=== PATIENT | female | born 1970 | race American Indian/Alaskan Native ===

== ENCOUNTER 2016-12-06 14:24 | Outpatient (CLI) | payer BC, OTHER | END 2016-12-06 14:25 | disposition home or self-care (01) | LOC: LABHHL 14:24 | PROVIDERS: ATTEND Obstetrics & Gynecology | DX: D25.0 Submucous leiomyoma of uterus (principal) | CPT/HCPCS: 88305 ==

== ENCOUNTER 2020-06-22 11:33 | Emergency (ER) | payer BC, MEDICAID ==
[2020-06-22 12:30] LABS: Basophils # (Auto) 0.1 K/mm3 (0.0-0.1); Basophils % (Auto) 0.9 % (0.0-1.8); Eosinophils % (Auto) 0.2 % (0.0-4.3); Hematocrit 37.1 % (30.3-42.9); Hemoglobin 11.8 gm/dl (10.1-14.3); Lymphocytes # (Auto) 1.9 K/mm3 (1.2-5.4); Lymphocytes % (Auto) 13.1 % (13.4-35.0); Mean Corpuscular HGB Conc 32 % (30-34); Mean Corpuscular Volume 79 fl (79-97); Monocytes % (Auto) 7.1 % (0.0-7.3); Platelet Count 230 K/mm3 (140-440); Red Blood Count 4.71 M/mm3 (3.65-5.03); Red Cell Distribution Width 16.6 % (13.2-15.2)
[2020-06-22 12:58] LABS: BUN/Creatinine Ratio 26; Blood Urea Nitrogen 23 mg/dL (7-17); Calcium 9.6 mg/dL (8.4-10.2); Hemolysis Index 6
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
[2020-06-22 16:20] LABS: Amphetamine Screen,Urine Negative; Benzodiazepines Screen,Urine Negative; Cocaine Screen,Urine Negative; Methadone Screen,Urine Negative; Opiate Screen,Urine Negative
[2020-06-22 16:33] LABS: Cannabinoid Screen,Urine Positive
[2020-06-22 16:41] LABS: Bilirubin,Urine NEG (Negative); Blood,Urine NEG (Negative); Color,Urine Yellow (Yellow); Mucus,Urine FEW /HPF; Protein,Urine <15 mg/dL mg/dL (Negative); Urobilinogen,Urine < 2.0 mg/dL (<2.0)
[2020-06-22] MEDS ORDERED: ZIPRASIDONE MESYLATE 20 MG VIAL IM ONE ×2 (16:59→17:07)
[2020-06-22 17:22] VITALS: BP 148/90
== END 2020-06-22 19:13 ==
LOC: ED 11:33
DX: F23 Brief psychotic disorder (principal); J45.909 Unspecified asthma, uncomplicated; F17.200 Nicotine dependence, unspecified, uncomplicated; Z79.899 Other long term (current) drug therapy; Z88.8 Allergy status to other drugs, medicaments and biological substances
CPT/HCPCS: 36415; 80048; 80307; 81001; 83690; 84703; 85025; 96372; 99285; J3486; 80320; G0480

== ENCOUNTER 2021-07-13 19:01 | Emergency (ER) | payer MEDICARE ==
[2021-07-13] MEDS ORDERED: LORazepam 2 MG/ML VIAL IM PRN (21:17)
[2021-07-13] MEDS ORDERED: ZIPRASIDONE MESYLATE 20 MG VIAL IM ONE (21:17)
[2021-07-13] MEDS ORDERED: HALOPERIDOL LACTATE 5 MG/1 ML INJ IM PRN (21:17)
[2021-07-13] MEDS ORDERED: HALOPERIDOL LACTATE 5 MG/1 ML INJ IM ONE (21:18)
[2021-07-13] MEDS ORDERED: diphenhydrAMINE 50 MG/ML VIAL IM ONE (21:18)
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
[2021-07-13] MEDS ORDERED: LORazepam 2 MG/ML VIAL IM ONE (21:19)
[2021-07-13 21:48] LABS: Mean Corpuscular HGB Conc 30 % (30-34); Mean Corpuscular Volume 76 fl (79-97); Platelet Count 265 K/mm3 (140-440); Red Blood Count 4.88 M/mm3 (3.65-5.03)
[2021-07-13 22:02] LABS: Hematocrit 37.1 % (30.3-42.9); Hemoglobin 11.1 gm/dl (10.1-14.3); Red Cell Distribution Width 20.4 % (13.2-15.2)
[2021-07-13 22:06] LABS: Blood Urea Nitrogen 10 mg/dL (7-17); Calcium 9.1 mg/dL (8.4-10.2); Hemolysis Index 2
[2021-07-13 22:09] LABS: BUN/Creatinine Ratio 17
--- NOTE | 2021-07-13 23:16 | XRay Report ---
CHEST 1 VIEW 07/13/2021 10:45 PM INDICATION / CLINICAL INFORMATION: Medical Clearance Psych. COMPARISON: One view of the chest from 06/21/2013. FINDINGS: This study is limited by technique and the patient's body habitus. SUPPORT DEVICES: None. HEART / MEDIASTINUM: No significant abnormality. LUNGS / PLEURA: No significant pulmonary abnormality. No significant pleural effusion. No pneumothora x. ADDITIONAL FINDINGS: No significant additional findings. IMPRESSION: 1. No acute abnormality of the chest. Signer Name: Ashkan Acevedo MD Signed: 07/13/2021 11:11 PM Workstation Name: [id number]
--- NOTE | 2021-07-13 23:57 | Cat Scan Report ---
CT HEAD WITHOUT CONTRAST INDICATION / CLINICAL INFORMATION: acute psychosis. TECHNIQUE: All CT scans at this location are performed using CT dose reduction for ALARA by means of automated exposure control. COMPARISON: None available. FINDINGS: BRAIN PARENCHYMA: No acute intracranial hemorrhage. No evidence of recent infarct. No mass effect or midline shift. VENTRICULAR SYSTEM/EXTRA-AXIAL SPACES: Ventricles are normal for age. No extra-axial fluid collection . ORBITS: Normal as visualized. SKELETAL SYSTEM/SOFT TISSUES: Normal bones and soft tissues. PARANASAL SINUSES/MASTOID AIR CELLS: No significant abnormality. ADDITIONAL FINDINGS: None. IMPRESSION: 1. No acute intracranial abnormality. Signer Name: Ashkan Acevedo MD Signed: 07/13/2021 11:52 PM Workstation Name: [id number]
--- NOTE | 2021-07-14 00:06 | Cat Scan Report ---
CT CERVICAL SPINE WITHOUT CONTRAST INDICATION: Altered mental status, acute psychosis, possible neck injury. COMPARISON: None available. TECHNIQUE: Axial, coronal and sagittal CT imaging of the cervical spine without contrast was performnegro d. All CT scans at this location are performed using CT dose reduction for ALARA by means of automat ed exposure control. FINDINGS: Motion artifact limits portions of this exam. VERTEBRAE:No acute fracture. Normal alignment. DISC SPACES: No significant abnormality. FACET JOINTS:No significant abnormality. CENTRAL CANAL: No central canal stenosis or neural foraminal narrowing. SOFT TISSUES:No significant abnormality. LUNG APICES: No significant abnormality. ADDITIONAL FINDINGS: None IMPRESSION: Limited exam due to motion artifact. No acute findings. Signer Name: Ashkan Acevedo MD Signed: 07/14/2021 12:02 AM Workstation Name: [id number]
[2021-07-14] MEDS ORDERED: ALBUTEROL 8.5 GM MDI INHALATION IH PRN (03:49)
[2021-07-14 09:30] VITALS: BP 174/90
[2021-07-14 09:40] LABS: Amphetamine Screen,Urine Negative; Benzodiazepines Screen,Urine Negative; Cocaine Screen,Urine Negative; Methadone Screen,Urine Negative; Opiate Screen,Urine Negative
[2021-07-14 09:46] LABS: Bacteria,Urine 1+ /HPF (Negative); Bilirubin,Urine NEG (Negative); Blood,Urine NEG (Negative); Color,Urine Yellow (Yellow); Hyaline Casts,Urine 2 /LPF; Mucus,Urine FEW /HPF; Protein,Urine <15 mg/dL mg/dL (Negative)
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
[2021-07-14 09:59] LABS: Cannabinoid Screen,Urine Positive
[2021-07-14] MEDS ORDERED: FAMOTIDINE 20 MG TAB PO SCH (10:00)
--- NOTE | 2021-07-14 11:45 | Emergency Department Report ---
Blank Doc - Documentation Documentation: Medical chart reviewed Patient medically cleared by previous provider after ED work-up Patient requiring IM medication for sedation due to conduct upon ED arrival Patient here overnight and evaluated by mental health and deemed stable for discharge with the following assessment below Mental health assessment: (1) Bipolar Treatment Plan d/c 1013 Resume home meds previously prescribed by outpatient psych Sitter: per primary Medical: per primary Disposition: Do not recommend acute psychiatric inpatient treatment Will sign off. Thanks Case staffed with Dr. Spivey Nurse reports that since 8 this morning patient has been calm and cooperative Patient will be discharged as per mental health recommendation
--- NOTE | 2021-07-14 12:53 | Electrocardiograph Report ---
[facility] Test Date: 2021-07-13 Test Time: 22:42:13 Pat Name: NICK BALDWIN Department: Room: Gender: F Senior Business Manager: LIZZY : 1970 Requested By: BULL WATSON Order Number: [id number] Reading MD: Earl Escobar Measurements Intervals [place] Rate: 102 P: 73 MN: 153 QRS: 48 QRSD: 94 T: 1 QT: 427 QTc: 557 Interpretive Statements Sinus tachycardia Consider anteroseptal infarct Prolonged QT interval No previous ECG available for comparison Electronically Signed On 07-14-2021 12:52:59 EST by Earl Escobar
== END 2021-07-14 12:33 | disposition home or self-care (01) ==
LOC: ED 19:01
DX: F23 Brief psychotic disorder (principal); Z13.30 Encounter for screening examination for mental health and behavioral disorders, unspecified; Z20.822 Contact with and (suspected) exposure to COVID-19; Z91.041 Radiographic dye allergy status; Z87.892 Personal history of anaphylaxis
CPT/HCPCS: 36415; 70450; 71045; 72125; 80048; 80164; 80178; 80185; 80307; 81001; 82550; 83735; 84443; 85027; 93005; 96372; 99285; J3486; U0003; 80320; G0480

== ENCOUNTER 2021-07-25 11:38 | Emergency (ER) | payer MEDICARE ==
[2021-07-25 15:21] LABS: Basophils # (Auto) 0.1 K/mm3 (0.0-0.1); Basophils % (Auto) 0.8 % (0.0-1.8); Eosinophils # (Auto) 0.2 K/mm3 (0.0-0.4); Eosinophils % (Auto) 1.9 % (0.0-4.3); Lymphocytes # (Auto) 1.4 K/mm3 (1.2-5.4); Lymphocytes % (Auto) 11.8 % (13.4-35.0); Mean Corpuscular HGB Conc 30 % (30-34); Mean Corpuscular Volume 79 fl (79-97); Monocytes # (Auto) 0.7 K/mm3 (0.0-0.8); Monocytes % (Auto) 5.4 % (0.0-7.3)
[2021-07-25 15:32] LABS: BUN/Creatinine Ratio 16; Blood Urea Nitrogen 8 mg/dL (7-17); Calcium 9.2 mg/dL (8.4-10.2); Hemolysis Index 6
[2021-07-25 15:33] LABS: Hematocrit 36.2 % (30.3-42.9); Hemoglobin 10.8 gm/dl (10.1-14.3); Platelet Count 142 K/mm3 (140-440); Red Cell Distribution Width 21.6 % (13.2-15.2)
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
[2021-07-25] MEDS ORDERED: ZIPRASIDONE MESYLATE 20 MG VIAL IM ONE (18:11)
[2021-07-26 08:08] LABS: Bacteria,Urine 1+ /HPF (Negative); Bilirubin,Urine NEG (Negative); Blood,Urine NEG (Negative); Color,Urine Yellow (Yellow); Mucus,Urine FEW /HPF; Protein,Urine <15 mg/dL mg/dL (Negative); Urobilinogen,Urine < 2.0 mg/dL (<2.0)
[2021-07-26 08:10] LABS: Amphetamine Screen,Urine Negative; Benzodiazepines Screen,Urine Negative; Cocaine Screen,Urine Negative; Methadone Screen,Urine Negative; Opiate Screen,Urine Negative
[2021-07-26 08:26] LABS: Cannabinoid Screen,Urine Positive
[2021-07-26 10:36] VITALS: BP 182/73
--- NOTE | 2021-07-26 11:54 | Consultation ---
History of Present Illness - Reason for Consult Consult date: 07/26/21 Reason for consult: Mental health evaluation - History of Present Psychiatric Illness ED Note: The patient is a 51-year-old female present with a chief complaint of paranoia. Patient states she carries a diagnosis of anxiety she came to the emergency department because for family wants her to get help. Patient states "I am paranoid about the Covid that is on the way." Patient denies suicidal or homicidal ideation. Patient denies auditory visual hallucinations. Cassi Crooks is a 51 year old female with history of Schizophrenia and Bipolar disorder. In my interview with the patient, she is circumstantial. The patient states "they thought I was crazy and they brought me here." The patient is complaining about her living situation and that she wants to find a psychiatrist to look over her medications. The patient denies any current suicidal/homicidal ideation and denies hallucinations. PAST PSYCHIATRIC HISTORY: Diagnose: Schizophrenia, bipolar Suicide attempts or Self-harm behavior: Denies Prior psychiatric hospitalizations: Yes Substance Abuse history: Denies Previous psychiatric medications tried: Yes Outpatient treatment: Yes PAST MEDICAL HISTORY: None reported Family Psychiatric History: None reported or documented SOCIAL HISTORY Marital Status: Single Living Arrangements: long-term Employment Status: Employed Access to guns/weapons: Denies Education:9th History of Abuse:Denies Legal History: Denies REVIEW OF SYSTEMS Constitutional: Negative for weight loss ENT: Negative for stridor Respiratory: Negative for cough or hemoptysis All other systems reviewed and are negative MENTAL STATUS EXAMINATION General Appearance and Behavior: Age appropriate, good hygiene, wearing appropri ate clothes. calm, cooperative, polite Cooperation: Cooperative Psychomotor Behavior: Psychomotor normal Mood: "good" Affect and affective range: congruent with stated mood Thought Process: Goal directed Thought Content: reality oriented Speech: normal tone and pace Suicidal Ideation: Denies Homicidal Ideation: Denies Hallucinations: Denies Delusions: None elicited Impulse Control: Limited Insight and Judgment: Limited insight and poor judgment Memory: Limited Attention: distracted Orientation: confused Assessment (1) Bipolar Treatment Plan d/c 1013 Case management Resume home meds previously prescribed by outpatient psych Sitter: per primary Medical: per primary Disposition: Do not recommend acute psychiatric inpatient treatment Will sign off. Thanks Case staffed with Dr. Spivey Medications and Allergies Allergies Allergy/AdvReac Type Severity Reaction Status Date / Time iodine Allergy Swelling Verified 07/25/21 11:45 iron AdvReac Shortness Verified 07/25/21 11:45 of Breath shellfish derived AdvReac Shortness Verified 07/25/21 11:45 of Breath Home Medications Medication Instructions Recorded Confirmed Last Taken Type Albuterol Sulfate [Proventil HFA] 1 - 2 puff IH Q4H PRN #1 hfa.aer.ad 06/21/13 Unknown Rx Albuterol Sulfate [Ventolin HFA] 2 puff IH Q4H PRN 06/21/13 06/21/13 Unknown History Loratadine (Nf) [Claritin] 10 mg PO DAILY #20 tablet 06/21/13 Unknown Rx Prednisone [Len] 5 mg PO BID 06/21/13 06/21/13 Unknown History oxyCODONE /ACETAMINOPHEN [Percocet 1 tab PO Q6HR PRN #10 tablet 06/21/13 Unknown Rx 5/325 mg] predniSONE [Deltasone] 20 mg PO BID #8 tablet 06/21/13 Unknown Rx EPINEPHrine [Epipen 2-Tej] 0.3 mg IJ ONCE PRN #2 applicator 08/23/14 Unknown Rx Famotidine [Pepcid] 20 mg PO BID #30 tablet 08/23/14 Unknown Rx diphenhydrAMINE [Benadryl] 25 mg PO Q6HR PRN #30 capsule 08/23/14 Unknown Rx Mental Status Exam - Vital signs Last Vital Signs Temp 98.2 F 07/26/21 10:36 Pulse 92 H 07/26/21 10:36 Resp 18 07/26/21 10:36 BP 182/73 07/26/21 10:36 Pulse Ox 98 07/26/21 10:36 Results Result Diagrams: 07/25/21 14:14 07/25/21 14:14 Abnormal lab results 07/25/21 07/25/21 07/25/21 Range/Units 14:14 14:14 14:14 WBC 12.2 H (4.5-11.0) K/mm3 MCH 24 L (28-32) pg RDW 21.6 H (13.2-15.2) % Lymph % (Auto) 11.8 L (13.4-35.0) % Seg Neutrophils % 80.1 H (40.0-70.0) % Seg Neutrophils # 9.8 H (1.8-7.7) K/mm3 Carbon Dioxide 18 L (22-30) mmol/L Creatinine 0.5 L (0.6-1.2) mg/dL Glucose 105 H (65-100) mg/dL Salicylates < 0.3 L (2.8-20.0) mg/dL Acetaminophen (10.0-30.0) ug/mL 07/25/21 Range/Units 14:14 WBC (4.5-11.0) K/mm3 MCH (28-32) pg RDW (13.2-15.2) % Lymph % (Auto) (13.4-35.0) % Seg Neutrophils % (40.0-70.0) % Seg Neutrophils # (1.8-7.7) K/mm3 Carbon Dioxide (22-30) mmol/L Creatinine (0.6-1.2) mg/dL Glucose (65-100) mg/dL Salicylates (2.8-20.0) mg/dL Acetaminophen 5.0 L (10.0-30.0) ug/mL All other labs normal.
== END 2021-07-26 12:12 | disposition home or self-care (01) ==
LOC: ED 11:38
DX: F23 Brief psychotic disorder (principal); F31.9 Bipolar disorder, unspecified; I10 Essential (primary) hypertension; J45.909 Unspecified asthma, uncomplicated; F12.90 Cannabis use, unspecified, uncomplicated; Z20.822 Contact with and (suspected) exposure to COVID-19
CPT/HCPCS: 36415; 80048; 80307; 81001; 85025; 96372; 99284; J3486; U0003; 80320; G0480